=== PATIENT | male | born 1985 | race Two or more races ===

== ENCOUNTER 2024-12-07 09:43 | Emergency (ER) | payer MEDICAID, SELFPAY ==
[2024-12-07 09:43] VITALS: BMI 29.2
[2024-12-07 09:51] VITALS: BP 142/77; PULSE 60; RESP 19; TEMP 36.6; O2SAT 97
--- NOTE | 2024-12-07 10:02 | PD.EDRME ---
Rapid Medical Screening Exam RME Arrival date/time: 12/07/24 09:43 39-year-old male presents emergency department today complaints of injury to right hand middle finger patient reports that he was at work and got a thorn stuck in his finger patient reports swelling and inability move the finger at this time Chief Complaint: Extremity Injury, Upper Time Seen by Provider: 12/07/24 09:49 Vital signs: Vital Signs Temperature 97.9 F 12/07/24 09:51 Pulse Rate 60 12/07/24 09:51 Respiratory Rate 19 12/07/24 09:51 Blood Pressure 142/77 H 12/07/24 09:51 Pulse Oximetry (%) 97 12/07/24 09:51 Oxygen Delivery Method Room Air 12/07/24 09:51
[2024-12-07] MEDS: KETOROLAC INJ 30 MG/ML VIAL IM (10:07)
== END 2024-12-07 10:45 | disposition left against medical advice (07) ==
LOC: SERX 10:17
PROVIDERS: Emergency Provider Emergency Medicine; PCP Nurse Practitioner Women's Health
DX: M25.441 Effusion, right hand (principal); Z53.29 Procedure and treatment not carried out because of patient's decision for other reasons
CPT/HCPCS: 96372; 99283; J1885